=== PATIENT | female | born 1990 ===

== ENCOUNTER 2017-07-26 02:10 | Inpatient (IN) | payer OTHER ==
[~2017-07-26 02:10] MED LIST: OFLOXACIN5 ML OD
== END 2017-07-27 17:48 | disposition home or self-care (01) | DRG 775 ==
LOC: FBC 02:10
PROVIDERS: ADMIT Obstetrics & Gynecology
PROC: 10E0XZZ Delivery of Products of Conception, External Approach (ICD-10-PCS; principal; 2017-07-26)
PROC: 00HU33Z Insertion of Infusion Device into Spinal Canal, Percutaneous Approach (ICD-10-PCS; 2017-07-26)
PROC: 3E0R3CZ (ICD-10-PCS; 2017-07-26)
DX: O66.0 Obstructed labor due to shoulder dystocia (principal); O42.02 Full-term premature rupture of membranes, onset of labor within 24 hours of rupture; Z37.0 Single live birth; Z3A.38 38 weeks gestation of pregnancy
CPT/HCPCS: 01960; 36415; 59025; 84112; 85027; 99213; J2405; J2590; J3010; J7120